=== PATIENT | male | born 1985 | race Hispanic/Latino ===

== ENCOUNTER 2023-07-30 16:21 | Emergency (ER) | payer SELFPAY ==
--- NOTE | 2023-07-30 17:49 | RAD REPORT ---
EXAM DESCRIPTION: US - Extremity Venous Uni Ltd - 07/30/2023 5:15 pm CLINICAL HISTORY: Pain, swelling COMPARISON: None. TECHNIQUE: Real-time sonographic evaluation of the right lower extremity deep venous system was perf ormed. FINDINGS: Normal compressibility, flow augmentation, phasic flow and spontaneous flow is identified in the right lower extremity deep venous system. No intraluminal filling defects seen. Subcutaneous edema in the region of bruising among the right hip, without discrete fluid collection or hematoma. IMPRESSION: No DVT in the right lower extremity.
--- NOTE | 2023-07-30 17:55 | ER ---
Nurse's Notes [facility] Name: Cain Ramirez Age: 37 yrs Sex: Male : 1985 Arrival Date: 07/30/2023 Time: 16:21 Bed 12 Private MD: Diagnosis: Contusion of right lower leg Presentation: 07/30 16:27 Chief complaint: Patient states: " 4 days ago we were wrestling outside and I fell on ph the ground on some pecans and hurt my leg. It's been getting bigger and I just want to make sure it's not a blood clot." Reports pain to R thigh area. Coronavirus screen: Vaccine status: Patient reports being unvaccinated. Ebola Screen: No symptoms or risks identified at this time. Initial Sepsis Screen: Does the patient meet any 2 criteria? No. Patient's initial sepsis screen is negative. Does the patient have a suspected source of infection? No. Patient's initial sepsis screen is negative. Risk Assessment: Do you want to hurt yourself or someone else? Patient reports no desire to harm self or others. Onset of symptoms was July 30, 2023. 16:27 Method Of Arrival: Ambulatory ph 16:27 Acuity: NII 4 ph Historical: - Allergies: 16:30 No Known Allergies; ph - Immunization history:: Adult Immunizations unknown. - Social history:: Smoking status: Patient denies any tobacco usage or history of. Screenin:32 [facility] ED Fall Risk Assessment (Adult) History of falling in the last 3 months, ld1 including since admission No falls in past 3 months (0 pts). Abuse screen: Denies threats or abuse. Denies injuries from another. Nutritional screening: No deficits noted. Tuberculosis screening: No symptoms or risk factors identified. Assessment: 16:32 General: Appears in no apparent distress. comfortable, Behavior is calm, cooperative, ld1 appropriate for age. Pain: Complains of pain in right leg Pain does not radiate. Pain currently is 7 out of 10 on a pain scale. Quality of pain is described as throbbing. Neuro: Level of Consciousness is awake, alert, obeys commands, Oriented to person, place, time, situation. Cardiovascular: Capillary refill < 3 seconds Patient's skin is warm and dry. Respiratory: Airway is patent Respiratory effort is even, unlabored. GI: Abdomen is flat, non-distended. : No signs and/or symptoms were reported regarding the genitourinary system. EENT: No signs and/or symptoms were reported regarding the EENT system. Derm: No signs and/or symptoms reported regarding the dermatologic system. Musculoskeletal: Reports pain in right leg. Vital Signs: 16:27 BP 151 / 101; Pulse 96; Resp 17; Temp 98.1; Pulse Ox 98% ; Weight 86.18 kg; Height 5 ph ft. 6 in. ; 16:27 Body Mass Index 30.67 (86.18 kg, 167.64 cm) ED Course: 16:25 Patient arrived in ED. 16:26 Joanie Isabel FNP is [facility] 16:26 Kwasi Collado MD is Attending Physician. [facility] 16:30 Triage completed. 16:30 Arm band placed on Patient placed in an exam room, on a stretcher. 16:31 Jaimee Dunn, RN is Primary Nurse. ld1 16:32 Patient has correct armband on for positive identification. Bed in low position. Call ld1 light in reach. Side rails up X2. Pulse ox on. NIBP on. Door closed. Noise minimized. 17:17 US Extremity Venous Unilateral Ltd In Process Unspecified. EDMS 17:58 No provider procedures requiring assistance completed. Patient did not have IV access ld1 during this emergency room visit. Administered Medications: No medications were administered Medication: 16:32 VIS not applicable for this client. ld1 Outcome: 17:54 Discharge ordered by . [facility] 17:58 Discharged to home ambulatory, ld1 17:58 Condition: stable 17:58 Discharge instructions given to patient, Instructed on discharge instructions, follow up and referral plans. Demonstrated understanding of instructions, follow-up care, 17:58 Patient left the ED. ld1 Signatures: Dispatcher [employer] EDLilo Tello RN RN Jaimee Dunn RN RN 1 Joanie Isabel FNP FNP [facility] Bety Burns
--- NOTE | 2023-07-30 17:55 | EDPHYS ---
Physician Documentation [facility] Name: Cain Ramirez Age: 37 yrs Sex: Male : 1985 Arrival Date: 07/30/2023 Time: 16:21 Bed 12 Private MD: ED Physician Kwasi Collado HPI: 07/30 16:30 This 37 yrs old Male presents to ER via Ambulatory with complaints of Leg jh7 Injury - right. 16:30 The patient presents with a contusion, pain, that is acute. The complaints affect the jh7 lateral aspect of right thigh. Context: The problem was sustained at a friend's home, resulted from a direct blow, Another person fell on the patient while wrestling. Onset: The symptoms/episode began/occurred 4 day(s) ago. Associated signs and symptoms: Pertinent negatives calf tenderness, fever, nausea, numbness, rash. Patient was wrestling while drunk 4 days ago and stated that another kika fell on his right thigh. He denies significant pain and is able to ambulate with no difficulty. He states he is concerned about a blood clot due to the large amount of bruising on his leg. No known medical problems.. Historical: - Allergies: 16:30 No Known Allergies; ph - Immunization history:: Adult Immunizations unknown. - Social history:: Smoking status: Patient denies any tobacco usage or history of. ROS: 16:30 Constitutional: Negative for fever, chills, and weight loss, Eyes: Negative for injury, jh7 pain, redness, and discharge, Neck: Negative for injury, pain, and swelling, Cardiovascular: Negative for chest pain, palpitations, and edema, Respiratory: Negative for shortness of breath, cough, wheezing, and pleuritic chest pain, Abdomen/GI: Negative for abdominal pain, nausea, vomiting, diarrhea, and constipation, Skin: Negative for injury, rash, and discoloration, Neuro: Negative for headache, weakness, numbness, tingling, and seizure, 16:30 MS/extremity: Positive for ecchymosis, of the lateral aspect of right thigh, 16:30 All other systems are negative, Exam: 16:30 Constitutional: This is a well developed, well nourished patient who is awake, alert, jh7 and in no acute distress. Head/Face: Normocephalic, atraumatic. Neck: Trachea midline, no thyromegaly or masses palpated, and no cervical lymphadenopathy. Supple, full range of motion without nuchal rigidity, or vertebral point tenderness. No Meningismus. Cardiovascular: Regular rate and rhythm with a normal S1 and S2. No gallops, murmurs, or rubs. Normal PMI, no JVD. No pulse deficits. Respiratory: Lungs have equal breath sounds bilaterally, clear to auscultation and percussion. No rales, rhonchi or wheezes noted. No increased work of breathing, no retractions or nasal flaring. Abdomen/GI: Soft, non-tender, with normal bowel sounds. No distension or tympany. No guarding or rebound. No evidence of tenderness throughout. Back: No spinal tenderness. No costovertebral tenderness. Full range of motion. MS/ Extremity: Pulses equal, no cyanosis. Neurovascular intact. Full, normal range of motion. Neuro: Awake and alert, GCS 15, oriented to person, place, time, and situation. Motor strength 5/5 in all extremities. Sensory grossly intact. Normal gait. 16:30 Musculoskeletal/extremity: Extremities: noted in the lateral aspect of right thigh: ecchymosis, ROM: intact in all extremities, Circulation is intact in all extremities. Pulses: are normal with no appreciated deficits, Perfusion: the extremity is normally perfused throughout, pink, warm, with brisk capillary refill, Sensation intact. Vital Signs: 16:27 BP 151 / 101; Pulse 96; Resp 17; Temp 98.1; Pulse Ox 98% ; Weight 86.18 kg; Height 5 ph ft. 6 in. ; 16:27 Body Mass Index 30.67 (86.18 kg, 167.64 cm) ph MDM: 16:26 Patient medically screened. [facility] 17:55 Differential diagnosis: contusion. Data reviewed: vital signs, nurses notes, radiologic [facility] studies, ultrasound. Counseling: I had a detailed discussion with the patient and/or guardian regarding the historical points, exam findings, and any diagnostic results supporting the discharge/admit diagnosis, radiology results, to return to the emergency department if symptoms worsen or persist or if there are any questions or concerns that arise at home. 07/30 16:32 Order name: Extremity Venous Unilateral Ltd; Complete Time: 17:52 [facility] Administered Medications: No medications were administered Disposition: 21:27 Co-signature as Attending Physician, Kwasi Collado MD I reviewed the patient's care rt provided by the Advanced Practice Provider and agree with the diagnosis and treatment plan. Disposition Summary: 07/30/23 17:54 Discharge Ordered Notes: Location: Home [facility] Problem: new [facility] Symptoms: are unchanged [facility] Condition: Stable [facility] Diagnosis - Contusion of right lower leg [facility] Followup: [facility] - With: Private Physician - When: 2 - 3 days - Reason: Recheck today's complaints Discharge Instructions: - Discharge Summary Sheet [facility] - Contusion [facility] Forms: - Medication Reconciliation Form [facility] - Thank You Letter [facility] - Patient Portal Instructions [facility] - Leadership Thank You Letter [facility] Signatures: Dispatcher [employer] Lilo Reyes RN RN Joanie Uribe, PRIMARY COUNSELOR PRIMARY COUNSELOR [facility] Kwasi Collado MD MD rt
[2023-07-30 18:02] VITALS: BP 151/101; TEMP 98.1; O2SAT 98
== END 2023-07-30 17:58 | disposition home or self-care (01) ==
LOC: ER 16:21
DX: S70.11XA Contusion of right thigh, initial encounter (principal)
CPT/HCPCS: 93971; 99283

== ENCOUNTER → 2023-10-28 | Emergency (ER) | payer SELFPAY ==
[~2023-10-28] MED LIST: NA CHLORIDE 0.9% 250 ML ONE
[2023-10-28 12:51] LABS: Specific Gravity < 1.005 (1.005-1.030); Urine Bacteria <20 /HPF (<20); Urine Bilirubin NEGATIVE (Negative); Urine Blood Negative (Negative); Urine Clarity Clear (Clear); Urine Color Colorless (Yellow); Urine Glucose NEGATIVE (Negative); Urine Protein TRACE (Negative); Urine RBC None Seen /HPF (None Seen); Urine Urobilinogen Normal (Normal); Urine pH 5.5 (5.0-7.0)
[2023-10-28 12:59] LABS: Protime INR 1.33
[2023-10-28 13:07] LABS: Albumin 3.8 g/dL (3.4-5.0); Bilirubin Total 0.8 mg/dL (0.2-1.0); Potassium 3.7 mEq/L (3.5-5.1); Protein, Total 9.4 g/dL (6.4-8.2)
[2023-10-28 13:22] LABS: Hematocrit 38.7 % (39.6-49.0); Lymphocytes % 17.1 % (15.3-44.8); MPV 8.5 fL (7.6-11.3); RBC Red Blood Cell Count 4.12 M/uL (4.33-5.43)
[2023-10-28 13:28] LABS: Platelets 15 thou/uL (152-406)
[2023-10-28 14:07] LABS: Blood Morphology Comment NOT SEEN (NOT SEEN); Platelet Estimate DECR; Platelets, Giant PRESENT; White Blood Cell Scan OK (OK)
--- NOTE | 2023-10-28 17:56 | ER ---
Nurse's Notes [facility] Name: Cain Ramirez Age: 37 yrs Sex: Male : 1985 Arrival Date: 10/28/2023 Time: 12:08 Bed 12 Private MD: Diagnosis: Thrombocytopenia, unspecified;Alcohol dependence Presentation: 10/28 12:18 Chief complaint: Patient states: Bruising on body and bleeding gums X 2-3 weeks. ld1 Coronavirus screen: At this time, the client does not indicate any symptoms associated with coronavirus-19. Ebola Screen: No symptoms or risks identified at this time. Initial Sepsis Screen: Does the patient meet any 2 criteria? No. Patient's initial sepsis screen is negative. Does the patient have a suspected source of infection? No. Patient's initial sepsis screen is negative. Risk Assessment: Do you want to hurt yourself or someone else?. Onset of symptoms was October 28, 2023 at 12:19. 12:18 Method Of Arrival: Ambulatory ld1 12:18 Acuity: NII 3 ld1 Triage Assessment: 12:19 General: Appears in no apparent distress. comfortable, Behavior is calm, cooperative, ld1 appropriate for age. Pain: Denies pain. EENT: No signs and/or symptoms were reported regarding the EENT system. Neuro: Level of Consciousness is awake, alert, obeys commands, Oriented to person, place, time, situation. Cardiovascular: Capillary refill < 3 seconds Patient's skin is warm and dry. Respiratory: Airway is patent Respiratory effort is even, unlabored. GI: Abdomen is round non-distended. : No signs and/or symptoms were reported regarding the genitourinary system. Derm: No signs and/or symptoms reported regarding the dermatologic system. Musculoskeletal: No signs and/or symptoms reported regarding the musculoskeletal system. Historical: - Allergies: 12:19 No Known Allergies; ld1 - Home Meds: 12:19 None [Active]; ld1 - PMHx: 12:19 None; ld1 - PSHx: 12:19 None; ld1 - Immunization history:: Adult Immunizations up to date. - Social history:: Smoking status: Patient denies any tobacco usage or history of. Patient uses alcohol. - Family history:: not pertinent. - Hospitalizations: : No recent hospitalization is reported. Screenin:44 [facility] ED Fall Risk Assessment (Adult) History of falling in the last 3 months, ld1 including since admission No falls in past 3 months (0 pts). Abuse screen: Denies threats or abuse. Denies injuries from another. Nutritional screening: No deficits noted. Tuberculosis screening: No symptoms or risk factors identified. Assessment: 12:20 Reassessment: See triage assessment. ld1 13:29 Reassessment: No changes from previously documented assessment. Patient and/or family ld1 updated on plan of care and expected duration. Pain level reassessed. 14:51 Reassessment: No changes from previously documented assessment. Patient and/or family ld1 updated on plan of care and expected duration. Pain level reassessed. 16:45 Reassessment: PT CONSENTED FOR TRANSFUSION. bp 17:45 Reassessment: INFUSION INITIATED. bp 18:15 Reassessment: PT DC HOME. bp Vital Signs: 12:18 BP 149 / 99; Pulse 97; Resp 18; Temp 97.6(TE); Pulse Ox 100% on R/A; Weight 89.36 kg; ld1 Height 5 ft. 6 in. ; Pain 0/10; 18:26 BP 131 / 90; Pulse 78; Resp 16; Pulse Ox 98% ; bp 12:18 Body Mass Index 31.80 (89.36 kg, 167.64 cm) ld1 12:18 Pain Scale: Adult ld1 ED Course: 12:11 Patient arrived in ED. mr 12:17 Ignacio Sofia MD is Attending Physician. rn 12:19 Triage completed. ld1 12:19 Arm band placed on. ld1 12:43 Inserted saline lock: 22 gauge in right forearm, using aseptic technique. Blood ld1 collected. 12:44 Patient has correct armband on for positive identification. ld1 12:47 Tony Mayer, GLEN is Primary Nurse. bp 18:28 No provider procedures requiring assistance completed. IV discontinued, intact, bp bleeding controlled, No redness/swelling at site. Pressure dressing applied. Administered Medications: 14:26 Drug: MethylPrednisoLONE IVP 125 mg IVP once Route: IVP; Site: right forearm; bp 18:28 Follow up: Response: No adverse reaction bp Outcome: 17:55 Discharge ordered by . rn 18:28 Discharged to home ambulatory, bp 18:28 Condition: stable 18:28 Discharge instructions given to patient, Instructed on discharge instructions, follow up and referral plans. medication usage, Demonstrated understanding of instructions, follow-up care, medications, Prescriptions given X 1, 18:29 Patient left the ED. bp Signatures: Carrol Gramajo Reg Reg mr Ignacio Sofia MD MD rn Peltier, Brian RN RN bp Jaimee Dunn RN RN ld1
--- NOTE | 2023-10-28 17:56 | EDPHYS ---
Physician Documentation [facility] Name: Cain Ramirez Age: 37 yrs Sex: Male : 1985 Arrival Date: 10/28/2023 Time: 12:08 Bed 12 Private MD: ED Physician Ignacio Sofia HPI: 10/28 14:13 This 37 yrs old Male presents to ER via Ambulatory with complaints of Bleeding rn Gums, Gums swelling. 14:13 The patient presents with bleeding. Onset: The symptoms/episode began/occurred today. rn Modifying factors: The symptoms are alleviated by nothing, the symptoms are aggravated by nothing. Severity of symptoms: At their worst the symptoms were mild, in the emergency department the symptoms are unchanged. The patient has not experienced similar symptoms in the past. Patient reports is daily drinker, came in today because noticed gums were bleeding. Also has noticed over the last few weeks easy bruising. No trauma. No head injury. Denies family history of blood dyscrasias or cancer.. Historical: - Allergies: 12:19 No Known Allergies; ld1 - Home Meds: 12:19 None [Active]; ld1 - PMHx: 12:19 None; ld1 - PSHx: 12:19 None; ld1 - Immunization history:: Adult Immunizations up to date. - Social history:: Smoking status: Patient denies any tobacco usage or history of. Patient uses alcohol. - Family history:: not pertinent. - Hospitalizations: : No recent hospitalization is reported. ROS: 14:13 Constitutional: Negative for fever, chills, and weight loss, ENT: Positive for gingival rn bleeding and intermittent nosebleeds Cardiovascular: Negative for chest pain, palpitations, and edema, Respiratory: Negative for shortness of breath, cough, wheezing, and pleuritic chest pain, Abdomen/GI: Negative for abdominal pain, nausea, vomiting, diarrhea, and constipation, Back: Negative for injury and pain, MS/Extremity: Negative for injury and deformity, Skin: Positive for bruising Neuro: Negative for headache, weakness, numbness, tingling, and seizure, Exam: 14:13 Constitutional: This is a well developed, well nourished patient who is awake, alert, rn and in no acute distress. Head/Face: Normocephalic, atraumatic. ENT: Mild bleeding along upper gingival line. No arterial bleeding. Poor dentition. No nosebleed Cardiovascular: Regular rate and rhythm. No pulse deficits. Respiratory: No increased work of breathing, no retractions or nasal flaring. Abdomen/GI: Soft, non-tender MS/ Extremity: Pulses equal, no cyanosis Neuro: Awake and alert, GCS 15 Vital Signs: 12:18 BP 149 / 99; Pulse 97; Resp 18; Temp 97.6(TE); Pulse Ox 100% on R/A; Weight 89.36 kg; ld1 Height 5 ft. 6 in. ; Pain 0/10; 18:26 BP 131 / 90; Pulse 78; Resp 16; Pulse Ox 98% ; bp 12:18 Body Mass Index 31.80 (89.36 kg, 167.64 cm) ld1 12:18 Pain Scale: Adult ld1 MDM: 12:17 Patient medically screened. rn 14:13 Differential diagnosis: dental caries, gingivitis, Alcoholic liver disease, alcohol rn induced thrombocytopenia. 17:36 Data reviewed: vital signs, nurses notes, lab test result(s), and as a result, I will spring intern patient. 17:52 Counseling: I had a detailed discussion with the patient and/or guardian regarding the rn historical points, exam findings, and any diagnostic results supporting the discharge/admit diagnosis, lab results, the need for outpatient follow up, to return to the emergency department if symptoms worsen or persist or if there are any questions or concerns that arise at home. Special discussion: I discussed with the patient/guardian in detail that at this point there is no indication for admission to the hospital. It is understood, however, that if the symptoms persist or worsen the patient needs to return immediately for re-evaluation. 17:52 ED course: Had long discussion with patient and sister regarding need to stop drinking rn and the repercussions that he is facing at this time. No indication for emergent admission. I consulted with hospitalist group and they said other than platelet transfusion can be managed outpatient. Patient interested in stopping drinking, will discharge with Librium. 10/28 14:05 Order name: Type And Screen rn 10/28 12:25 Order name: CBC with Diff; Complete Time: 14:42 rn 10/28 12:25 Order name: CMP; Complete Time: 13:49 rn 10/28 12:25 Order name: Lipase; Complete Time: 13:49 rn 10/28 12:25 Order name: Protime (+inr); Complete Time: 13:49 rn 10/28 12:25 Order name: Ptt, Activated; Complete Time: 13:49 rn 10/28 12:31 Order name: Urinalysis w/ reflexes; Complete Time: 13:49 rn 10/28 12:31 Order name: ETOH Level; Complete Time: 13:49 rn 10/28 13:30 Order name: CBC Smear Scan; Complete Time: 14:42 EDMS 10/28 16:02 Order name: ABO/RH no charge; Complete Time: 16:17 EDMS 10/28 16:47 Order name: Platelets, Leukored Pheresis EDAL 10/28 12:25 Order name: IV Saline Lock; Complete Time: 12:43 rn 10/28 12:25 Order name: Labs collected and sent; Complete Time: 12:43 rn 10/28 12:57 Order name: Labs - recollect needed: lavender top; Complete Time: 12:58 ds4 10/28 14:28 Order name: Labs - recollect needed; Complete Time: 14:51 ds4 Administered Medications: 14:26 Drug: MethylPrednisoLONE IVP 125 mg IVP once Route: IVP; Site: right forearm; bp 18:28 Follow up: Response: No adverse reaction bp Disposition Summary: 10/28/23 17:55 Discharge Ordered Notes: Location: Home rn Problem: new rn Symptoms: have improved rn Condition: Stable rn Diagnosis - Thrombocytopenia, unspecified rn - Alcohol dependence rn Followup: rn - With: Private Physician - When: As needed - Reason: Recheck today's complaints, Re-evaluation by your physician Discharge Instructions: - Discharge Summary Sheet rn - Thrombocytopenia rn - Platelet Transfusion rn Forms: - Medication Reconciliation Form rn - Thank You Letter rn - Antibiotic lead burner supervisor - Prescription Opioid Use rn - Patient Portal Instructions rn - Leadership Thank You Letter rn Prescriptions: - chlordiazepoxide HCl 25 mg laryngotracheal capsule - take 1 capsule ORAL route 3 times per day As needed as needed for alcohol rn withdrawal; 30 capsule; Refills: 0, Product Selection Permitted Signatures: Dispatcher [employer] EDMS Ignacio Sofia MD MD rn Swanson, Donovan ds4 Tony Mayer RN RN bp Jaimee Dunn RN RN ld1
[2023-10-28 18:47] VITALS: BP 131/90; TEMP 97.6; O2SAT 98
== END ==
LOC: ER 12:08
DX: D69.6 Thrombocytopenia, unspecified (principal); F10.20 Alcohol dependence, uncomplicated
CPT/HCPCS: 36415; 80053; 81001; 82077; 83690; 85025; 85610; 85730; 86850; 86900; 86901; J7050; P9073

== ENCOUNTER 2024-04-08 23:21 | Inpatient (IN) | payer OTHER ==
[2024-04-09 00:13] LABS: Absolute Basophils 0.1 K/uL (0-0.5); Absolute Eosinophils 0.1 K/uL (0-0.5); Absolute Lymphocytes (CBC) 0.7 K/uL (0.7-4.9); Absolute Monocytes 0.5 K/uL (0.1-1.3); Absolute Neutrophil 4.2 K/uL (1.8-8.0); Basophils % 1.2 % (0-1.3); Eosinophils % 2.7 % (0-4.4); Hematocrit 33.1 % (39.6-49.0); Hemoglobin 11.1 g/dL (13.6-17.9); Lymphocytes % 12.1 % (15.3-44.8); MCH 31.1 pg (27.0-35.0); MCHC 33.5 g/dL (32.0-36.0); MCV 92.7 fL (80-100); MPV 9.8 fL (7.6-11.3); Monocytes % 8.6 % (3.3-12.3); Neutrophils % 75.4 % (41.7-73.7); Nucleated Red Blood Cells % 0.1 % (0-0); Platelets 30 thou/uL (152-406); RBC Red Blood Cell Count 3.58 M/uL (4.33-5.43)
[2024-04-09] MEDS ORDERED: NA CHLORIDE 0.9% 1,000 ML ONE ×2 (00:13→01:44)
[2024-04-09 00:31] LABS: Albumin 3.7 g/dL (3.4-5.0); Albumin/Globulin Ratio 0.8 (1.1-1.8); Anion Gap 11.6 mEq/L (5.0-15.0); Bilirubin Direct 0.5 mg/dL (0-0.2); Bilirubin Total 1.5 mg/dL (0.2-1.0); Globulin 4.7 g/dL (2.3-3.5); Magnesium 1.5 mg/dL (1.6-2.4); Potassium 3.6 mEq/L (3.5-5.1); Protein, Total 8.4 g/dL (6.4-8.2); Troponin High Sensitivity 4.2 pg/mL (<58.9)
[2024-04-09] MEDS ORDERED: VITAMIN K (ADULT) 10 MG/ML ONE (00:45)
[2024-04-09] MEDS ORDERED: PANTOPRAZOLE 40 MG INJ ONE (00:45)
[2024-04-09 00:46] LABS: Specific Gravity 1.009 (1.005-1.030); Urine Bilirubin NEGATIVE (Negative); Urine Blood Negative (Negative); Urine Clarity Clear (Clear); Urine Color Light-Yellow (Yellow); Urine Glucose NEGATIVE (Negative); Urine Ketones NEGATIVE (Negative); Urine Microscopic Reflex YN NO UMIC; Urine Nitrite NEGATIVE (Negative); Urine Protein NEGATIVE (Negative); Urine Urobilinogen 1+ (Normal); Urine pH 7.5 (5.0-7.0)
[2024-04-09] MEDS ORDERED: TRANEXAMIC ACID 1,000 MG/10 ML VIAL IV ONE (00:46)
[2024-04-09] MEDS ORDERED: NA CHLORIDE 0.9% 100 ML ONE (00:46)
[2024-04-09] MEDS ORDERED: Magnesium Sulfate 2gm IVPB 2 G/50 ML BAG IV ONE (00:46)
[2024-04-09 00:55] LABS: PT Prothrombin Time 16.2 SECONDS (9.4-12.5); Protime INR 1.46
[2024-04-09] MEDS ORDERED: LORazepam 2 MG/ML VIAL ONE ×3 (01:06→04:54)
--- NOTE | 2024-04-09 01:30 | EDPHYS ---
Physician Documentation [facility] Name: Cain Ramirez Age: 38 yrs Sex: Male : 1985 Arrival Date: 04/08/2024 Time: 23:21 Bed 5 Private MD: ED Physician Dread Spencer HPI: 04/09 00:30 This 38 yrs old Male presents to ER via Ambulatory with complaints of General zoie Weakness, Bleeding Gums. Historical: - Allergies: 04/08 23:39 No Known Allergies; tl4 - PMHx: 23:39 Hypertensive disorder; Liver Issues; tl4 - Immunization history:: Adult Immunizations unknown. - Infectious Disease History:: Denies. - Social history:: Smoking status: Patient denies any tobacco usage or history of. Patient uses alcohol, on a daily basis. 12 pack/day. ROS: 04/09 00:38 Constitutional: Negative for fever, chills, and weight loss, Eyes: Negative for injury, zoie pain, redness, and discharge, Neck: Negative for injury, pain, and swelling, Cardiovascular: Negative for chest pain, palpitations, and edema, Respiratory: Negative for shortness of breath, cough, wheezing, and pleuritic chest pain, Abdomen/GI: Negative for abdominal pain, nausea, vomiting, diarrhea, and constipation, Back: Negative for injury and pain, : Negative for injury, bleeding, discharge, and swelling, MS/Extremity: Negative for injury and deformity, Skin: Negative for injury, rash, and discoloration, Neuro: Negative for headache, weakness, numbness, tingling, and seizure, ENT: Positive for dental pain, Gum pain Teeth pain gingival bleeding, Exam: 00:38 Constitutional: This is a well developed, well nourished patient who is awake, alert, zoie and in no acute distress. Head/Face: Normocephalic, atraumatic. Eyes: Pupils equal round and reactive to light, extra-ocular motions intact. Lids and lashes normal. Conjunctiva and sclera are non-icteric and not injected. Cornea within normal limits. Periorbital areas with no swelling, redness, or edema. Neck: Trachea midline, no thyromegaly or masses palpated, and no cervical lymphadenopathy. Supple, full range of motion without nuchal rigidity, or vertebral point tenderness. No Meningismus. Chest/axilla: Normal chest wall appearance and motion. Nontender with no deformity. No lesions are appreciated. Cardiovascular: Regular rate and rhythm with a normal S1 and S2. No gallops, murmurs, or rubs. Normal PMI, no JVD. No pulse deficits. Respiratory: Lungs have equal breath sounds bilaterally, clear to auscultation and percussion. No rales, rhonchi or wheezes noted. No increased work of breathing, no retractions or nasal flaring. Abdomen/GI: Soft, non-tender, with normal bowel sounds. No distension or tympany. No guarding or rebound. No evidence of tenderness throughout. Back: No spinal tenderness. No costovertebral tenderness. Full range of motion. Male : Normal genitalia with no discharge or lesions. MS/ Extremity: Pulses equal, no cyanosis. Neurovascular intact. Full, normal range of motion. Neuro: Awake and alert, GCS 15, oriented to person, place, time, and situation. Cranial nerves II-XII grossly intact. Motor strength 5/5 in all extremities. Sensory grossly intact. Cerebellar exam normal. Normal gait. Psych: Awake, alert, with orientation to person, place and time. Behavior, mood, and affect are within normal limits. 00:38 ENT: Mouth: Lips: normal, Oral mucosa: moist, Gums: bleeding, on the upper left second molar, upper left third molar and lower left third molar, 01:05 ECG was reviewed by the Attending Physician. [facility] 06:54 ECG was reviewed by the Attending Physician. [facility] Vital Signs: 04/08 23:37 BP 153 / 107; Pulse 84; Resp 20; Temp 99(O); Pulse Ox 100% on R/A; Weight 84.82 kg; tl4 Height 5 ft. 6 in. ; Pain 0/10; 04/09 01:01 BP 156 / 96; Pulse 89; Resp 18; Pulse Ox 100% ; cp4 02:00 BP 142 / 100; Pulse 117; Resp 18; Pulse Ox 96% ; cp4 03:00 BP 130 / 83; Pulse 104; Resp 18; Pulse Ox 100% on 2 lpm NC; cp4 04:00 BP 131 / 95; Pulse 113; Resp 18; Pulse Ox 100% on 2 lpm NC; cp4 04/08 23:37 Body Mass Index 30.18 (84.82 kg, 167.64 cm) tl4 04/08 23:37 Pain Scale: Adult tl4 MDM: 04/08 23:25 Patient medically screened. [facility] 04/09 00:42 Differential diagnosis: dental caries, gingivitis, gingivostomatitis. Data reviewed: [facility] vital signs, nurses notes, lab test result(s), EKG, radiologic studies, plain films. Consideration of Admission/Observation Escalation of care including admission/observation considered. I considered the following discharge prescriptions or medication management in the emergency department Medications were administered in the Emergency Department. See MAR. Independent interpretation of the following test(s) in the Emergency Department EKG: See my EKG interpretation above. Test considered but Not performed: Ultrasound no abd usg. Historians other than the Patient: Family Member: sister well informed. Care significantly affected by the following chronic conditions: Hypertension, Obesity, Liver Disease, cirrhosis. Counseling: I had a detailed discussion with the patient and/or guardian regarding the historical points, exam findings, and any diagnostic results supporting the discharge/admit diagnosis, the presence of at least one elevated blood pressure reading (>120/80) during this emergency department visit, lab results, radiology results. 04/08 23:26 Order name: Basic Metabolic Panel; Complete Time: 00:32 [facility] 04/08 23:26 Order name: CBC with Diff; Complete Time: 04:43 [facility] 04/08 23:26 Order name: LFT's; Complete Time: 00:32 [facility] 04/08 23:26 Order name: Magnesium; Complete Time: 00:32 [facility] 04/08 23:26 Order name: NT PRO-BNP; Complete Time: 00:32 [facility] 04/08 23:26 Order name: PT-INR; Complete Time: 01:01 [facility] 04/08 23:26 Order name: Troponin HS; Complete Time: 00:32 [facility] 04/08 23:26 Order name: Lipase; Complete Time: 00:32 [facility] 04/08 23:26 Order name: AMMONIA; Complete Time: 00:30 [facility] 04/08 23:26 Order name: Type And Screen [facility] 04/08 23:26 Order name: Urinalysis w/ reflexes; Complete Time: 01:01 [facility] 04/08 23:38 Order name: ETOH Level; Complete Time: 00:30 [facility] 04/09 00:16 Order name: CBC Smear Scan; Complete Time: 04:43 EDMS 04/09 04:10 Order name: Urinalysis w/ reflexes [facility] 04/09 04:10 Order name: CBC with Automated Diff [facility] 04/09 04:10 Order name: CBC with Automated Diff [facility] 04/09 04:10 Order name: Comprehensive Metabolic Panel [facility] 04/09 04:10 Order name: Comprehensive Metabolic Panel [facility] 04/09 04:10 Order name: Protime (+INR) [facility] 04/09 04:10 Order name: Protime (+INR) [facility] 04/09 04:10 Order name: PTT, Activated Partial Thromb [facility] 04/09 04:10 Order name: PTT, Activated Partial Thromb [facility] 04/08 23:26 Order name: XRAY Chest (1 view) [facility] 04/09 01:14 Order name: CT Head Brain wo Cont [facility] 04/08 23:26 Order name: EKG; Complete Time: 23:27 [facility] 04/08 23:26 Order name: Cardiac monitoring; Complete Time: 23:49 [facility] 04/08 23:26 Order name: EKG - Nurse/Tech; Complete Time: 00:05 [facility] 04/08 23:26 Order name: IV Saline Lock; Complete Time: 23:49 [facility] 04/08 23:26 Order name: Labs collected and sent; Complete Time: 23:49 [facility] 04/08 23:26 Order name: O2 Per Protocol; Complete Time: 23:49 [facility] 04/08 23:26 Order name: O2 Sat Monitoring; Complete Time: 23:49 [facility] 04/09 00:32 Order name: PO challenge: cold water, ice, swish; Complete Time: 00:58 [facility] 04/09 04:45 Order name: EKG - Nurse/Tech; Complete Time: 04:50 [facility] EC:05 Rate is 93 beats/min. Rhythm is regular. QRS [place] is Normal. [place] interval is normal. QRS zoie interval is normal. QT interval is normal. No Q waves. T waves are Normal. No ST changes noted. Clinical impression: NSR w/ Non-specific ST/T Changes and No evidence of ischemia. Interpreted by me. Reviewed by me. 06:54 Rate is 116 beats/min. Rhythm is regular. QRS [place] is Normal. [place] interval is normal. zoie QRS interval is normal. QT interval is normal. No Q waves. T waves are Normal. No ST changes noted. Clinical impression: Sinus tachycardia. Interpreted by me. Reviewed by me. Administered Medications: 01:21 Discontinued: ns 0.9% 1000 ml IV at 125 ml/hr continuous zoie 00:19 Drug: NS 0.9% IV 1000 ml IV at 125 ml/hr continuous Route: IV; Rate: 125 ml/hr; Site: cp4 right antecubital; 00:57 Drug: tranexamic acid 1000 mg IV at per protocol once; administer at a rate not to cp4 exceed 100 mg per min Route: IV; Rate: per protocol; Site: right antecubital; 01:15 Follow up: Response: No adverse reaction; IV Status: Completed infusion cp4 00:58 Drug: Phytonadione IM 10 mg IM once Route: IM; Site: right deltoid; cp4 03:23 Follow up: Response: No adverse reaction cp4 00:58 Drug: Pantoprazole IVP 40 mg IVP once Route: IVP; Site: right antecubital; cp4 03:22 Follow up: Response: No adverse reaction cp4 01:07 Drug: Ativan IVP 2 mg IVP once Route: IVP; Site: right antecubital; ss 03:22 Follow up: Response: No adverse reaction cp4 01:16 Drug: Magnesium Sulfate IVPB 2 grams IVPB once over 2 hrs Route: IVPB; Infused Over: 2 cp4 hrs; Site: right antecubital; 01:31 Follow up: Response: No adverse reaction; IV Status: Completed infusion cp4 01:56 Drug: Thiamine IV 100 mg IV at bolus once Route: IV; Rate: bolus; Site: right cp4 antecubital; 01:57 Follow up: IV Status: Completed infusion cp4 01:57 Drug: Banana Bag - (Multivitamin IV 1 amp, NS 0.9% IV 1000 ml, Thiamine IV 100 mg, cp4 foLIC Acid IVPB 1 mg) IV at 150 ml/hr once Route: IV; Rate: 150 ml/hr; Site: right antecubital; 04:57 Follow up: IV Status: Infusion continued upon admission ss 04:38 Drug: Ativan IVP 2 mg IVP once Route: IVP; Site: right antecubital; cp4 04:57 Follow up: Response: No adverse reaction; No change in condition ss 04:45 Drug: NS 0.9% IV 1000 ml IV at 1 bolus Per protocol; 1000 mL bolus Route: IV; Rate: 1 cp4 bolus; Site: right antecubital; 05:15 Follow up: IV Status: Infusion continued upon admission cp4 04:57 Drug: Ativan IVP 2 mg IVP once Route: IVP; Site: right antecubital; 05:15 Follow up: Response: No adverse reaction cp4 Disposition Summary: 04/09/24 01:29 Hospitalization Ordered Notes: Hospitalization Status: Inpatient Admission zoie Provider: Robert Chen cha Condition: Fair zoie Problem: new zoie Symptoms: have improved zoie Bed/Room Type: Standard zoie Location: Intensive Care Unit(04/09/24 04:36) zoie Room Assignment: 6-(04/09/24 04:37) formerly [facility] Diagnosis - Alcohol dependence with withdrawal, unspecified zoie - Dental caries, unspecified - gingival bleeding zoie - Other secondary thrombocytopenia - alcoholic liver disease zoie - Other seizures zoie - Hypomagnesemia zoie - Essential (primary) hypertension zoie Forms: - Medication Reconciliation Form zoie - SBAR form zoie - Leadership Thank You Letter zoie Critical care time excluding procedures: 06:54 Critical care time: Bedside Care: 35 minutes, Consultation: 15 minutes, Family zoie Intervention: 15 minutes. Total time: 65 minutes Signatures: Dispatcher [employer] EDDread Roberson MD MD cha Blanchard, Shelby, RN RN Mary Carmen Gomez cp4 Maria T Alvarado formerly [facility] Raoul Abebe RN RN tl4 Sultan Del [facility] Corrections: (The following items were deleted from the chart) 04/08 23:27 23:27 BASIC METABOLIC PANEL+C.LAB.BRZ ordered. EDMS EDMS 23:27 23:27 CBC+H.LAB.BRZ ordered. EDMS EDMS 23:27 23:27 HEPATIC FUNCTION+C.LAB.BRZ ordered. EDMS EDMS 23:27 23:27 MAGNESIUM+C.LAB.BRZ ordered. EDMS EDMS 23:27 23:27 PROBNP+C.LAB.BRZ ordered. EDMS EDMS 23:27 23:27 PROTIME (+INR)+COAG.LAB.BRZ ordered. EDMS EDMS 23:27 23:27 Troponin High Sensitivity+C.LAB.BRZ ordered. EDMS EDMS 23:27 23:27 LIPASE+C.LAB.BRZ ordered. EDMS EDMS 23: 23:27 AMMONIA+C.LAB.BRZ ordered. EDMS EDMS 23: 23:27 TYPE AND SCREEN+BB.LAB.BRZ ordered. EDMS EDMS 23:38 23:38 ETHANOL+C.LAB.BRZ ordered. EDMS EDMS 04/09 01:15 01:15 Head Brain Wo Cont+CT.RAD.BRZ ordered. EDMS EDMS 04:33 01:29 [place] [id number] 04:36 01:29 Telemetry/MedSurg (Inpatient) [facility] 04:36 04:33 [facility] 04:37 04:36 [facility] kmf
--- NOTE | 2024-04-09 01:30 | ER ---
Nurse's Notes [facility] Name: Cain Ramirez Age: 38 yrs Sex: Male : 1985 Arrival Date: 04/08/2024 Time: 23:21 Bed 5 Private MD: Diagnosis: Alcohol dependence with withdrawal, unspecified;Dental caries, unspecified-gingival bleeding;Other secondary thrombocytopenia-alcoholic liver disease;Other seizures;Hypomagnesemia;Essential (primary) hypertension Presentation: 04/08 23:37 Chief complaint: Patient states: Pt c/o bleeding gums since 1930 tonight. Pt states he tl4 had similar episode recently associated with ETOH abuse. Pt states he has soaked several paper towels. Pt states last ETOH was yesterday. Pt has been drinking 12 pack/day. Coronavirus screen: At this time, the client does not indicate any symptoms associated with coronavirus-19. Ebola Screen: No symptoms or risks identified at this time. Initial Sepsis Screen: Does the patient meet any 2 criteria? No. Patient's initial sepsis screen is negative. Does the patient have a suspected source of infection? No. Patient's initial sepsis screen is negative. Risk Assessment: Do you want to hurt yourself or someone else? Patient reports no desire to harm self or others. Onset of symptoms was April 08, 2024 at 19:30. 23:37 Method Of Arrival: Ambulatory tl4 23:37 Acuity: NII 3 tl4 Triage Assessment: 23:40 General: Appears distressed, Behavior is cooperative. Pain: Denies pain. EENT: bleeding tl4 from gums. Neuro: Level of Consciousness is awake, alert, obeys commands, Oriented to person, place, time, situation. Cardiovascular: Capillary refill < 3 seconds Patient's skin is warm and dry. Respiratory: Airway is patent Respiratory effort is even, unlabored, Respiratory pattern is regular, symmetrical. GI: No signs and/or symptoms were reported involving the gastrointestinal system. : No signs and/or symptoms were reported regarding the genitourinary system. Derm: No signs and/or symptoms reported regarding the dermatologic system. Musculoskeletal: No signs and/or symptoms reported regarding the musculoskeletal system. Historical: - Allergies: 23:39 No Known Allergies; tl4 - PMHx: 23:39 Hypertensive disorder; Liver Issues; tl4 - Immunization history:: Adult Immunizations unknown. - Infectious Disease History:: Denies. - Social history:: Smoking status: Patient denies any tobacco usage or history of. Patient uses alcohol, on a daily basis. 12 pack/day. Screenin:42 Clinical [place] Withdrawal Assessment for Alcohol, revised (CIWA-Ar): tl4 Nausea/Vomitin - No nausea or vomiting Headache: 0 - Not present Paroxysmal Sweats: 0 - No sweats visible Anxiety: 4 - Moderately anxious, guarded Agitation: 0 - Normal actiivty Tremor: 4 - Moderate when client's hands extended Auditory Disturbances: 0 - Not present Visual Disturbances: 0 - Not present Tactile Disturbances: 0 - None Orientation and Clouding of Sensorium: 0 - Oriented and can do serial additions Total Score: < 10 Very mild withdrawal. 04/09 00:03 [facility] ED Fall Risk Assessment (Adult) History of falling in the last 3 months, cp4 including since admission No falls in past 3 months (0 pts) Confusion or Disorientation No (0 pts) Intoxicated or Sedated No (0 pts) Impaired Gait No (0 pts) Mobility Assist Device Used No (0 pt) Altered Elimination No (0 pt) Score/Fall Risk Level 0 - 2 = Low Risk Oriented to surroundings, Maintained a safe environment, Assessed \T\ reinforced patient's understanding of fall precautions, Hourly rounding (assess needs \T\ fall precautionary measures) done. Abuse screen: Denies threats or abuse. Nutritional screening: No deficits noted. Tuberculosis screening: No symptoms or risk factors identified. Assessment: 00:01 General: Appears uncomfortable, Behavior is calm, cooperative, appropriate for age. cp4 Pain: Denies pain. Neuro: Level of Consciousness is awake, alert, obeys commands, Oriented to person, place, time, situation. Cardiovascular: No deficits noted. Respiratory: No deficits noted. GI: No deficits noted. : No deficits noted. EENT: Reports bleeding gums. Derm: No deficits noted. Musculoskeletal: No deficits noted. 01:16 Reassessment: Patient started having seizures. Provider notified and in room with cp4 patient. 02:00 Neuro: Level of Consciousness is awake, alert, obeys commands, Oriented to person, cp4 place, time, situation. 02:00 Reassessment: Patient and/or family updated on plan of care and expected duration. Pain cp4 level reassessed. Patient is alert, oriented x 3, equal unlabored respirations, skin warm/dry/pink. 03:00 Reassessment: No changes from previously documented assessment. Patient and/or family cp4 updated on plan of care and expected duration. Pain level reassessed. Patient is alert, oriented x 3, equal unlabored respirations, skin warm/dry/pink. Vital Signs: 04/08 23:37 BP 153 / 107; Pulse 84; Resp 20; Temp 99(O); Pulse Ox 100% on R/A; Weight 84.82 kg; tl4 Height 5 ft. 6 in. ; Pain 0/10; 04/09 01:01 BP 156 / 96; Pulse 89; Resp 18; Pulse Ox 100% ; cp4 02:00 BP 142 / 100; Pulse 117; Resp 18; Pulse Ox 96% ; cp4 03:00 BP 130 / 83; Pulse 104; Resp 18; Pulse Ox 100% on 2 lpm NC; cp4 04:00 BP 131 / 95; Pulse 113; Resp 18; Pulse Ox 100% on 2 lpm NC; cp4 04/08 23:37 Body Mass Index 30.18 (84.82 kg, 167.64 cm) tl4 04/08 23:37 Pain Scale: Adult tl4 ED Course: 04/08 23:22 Patient arrived in ED. am2 23:25 Dread Spencer MD is Attending Physician. [facility] 23:39 Triage completed. tl4 23:41 Arm band placed on right wrist. tl4 23:41 Client placed on continuous cardiac and pulse oximetry monitoring. NIBP monitoring tl4 applied. 23:56 Inserted saline lock: 20 gauge in right antecubital area, using aseptic technique. af3 Blood collected. Flushed with 10 mL NS. 23:56 Type And Screen Sent. af3 23:56 AMMONIA Sent. af3 23:56 Lipase Sent. af3 23:56 Basic Metabolic Panel Sent. af3 23:56 CBC with Diff Sent. af3 23:57 LFT's Sent. af3 23:57 Magnesium Sent. af3 23:57 NT PRO-BNP Sent. af3 23:57 PT-INR Sent. af3 23:57 Troponin HS Sent. af3 04/09 00:00 Mary Carmen Elias is Primary Nurse. cp4 00:03 Bed in low position. Call light in reach. Side rails up X 1. cp4 00:06 XRAY Chest (1 view) In Process Unspecified. EDMS 00:18 Urinalysis w/ reflexes Sent. cp4 00:18 No provider procedures requiring assistance completed. Urine collected: clean catch cp4 specimen, gavi colored. 01:25 Robert Chen MD is Hospitalizing Provider. zoie 02:06 CT Head Brain wo Cont In Process Unspecified. EDMS 06:53 Primary Nurse role handed off by Mary Carmen Elias Administered Medications: 01:21 Discontinued: ns 0.9% 1000 ml IV at 125 ml/hr continuous zoie 00:19 Drug: NS 0.9% IV 1000 ml IV at 125 ml/hr continuous Route: IV; Rate: 125 ml/hr; Site: cp4 right antecubital; 00:57 Drug: tranexamic acid 1000 mg IV at per protocol once; administer at a rate not to cp4 exceed 100 mg per min Route: IV; Rate: per protocol; Site: right antecubital; 01:15 Follow up: Response: No adverse reaction; IV Status: Completed infusion cp4 00:58 Drug: Phytonadione IM 10 mg IM once Route: IM; Site: right deltoid; cp4 03:23 Follow up: Response: No adverse reaction cp4 00:58 Drug: Pantoprazole IVP 40 mg IVP once Route: IVP; Site: right antecubital; cp4 03:22 Follow up: Response: No adverse reaction cp4 01:07 Drug: Ativan IVP 2 mg IVP once Route: IVP; Site: right antecubital; 03:22 Follow up: Response: No adverse reaction cp4 01:16 Drug: Magnesium Sulfate IVPB 2 grams IVPB once over 2 hrs Route: IVPB; Infused Over: 2 cp4 hrs; Site: right antecubital; 01:31 Follow up: Response: No adverse reaction; IV Status: Completed infusion cp4 01:56 Drug: Thiamine IV 100 mg IV at bolus once Route: IV; Rate: bolus; Site: right cp4 antecubital; 01:57 Follow up: IV Status: Completed infusion cp4 01:57 Drug: Banana Bag - (Multivitamin IV 1 amp, NS 0.9% IV 1000 ml, Thiamine IV 100 mg, cp4 foLIC Acid IVPB 1 mg) IV at 150 ml/hr once Route: IV; Rate: 150 ml/hr; Site: right antecubital; 04:57 Follow up: IV Status: Infusion continued upon admission ss 04:38 Drug: Ativan IVP 2 mg IVP once Route: IVP; Site: right antecubital; cp4 04:57 Follow up: Response: No adverse reaction; No change in condition ss 04:45 Drug: NS 0.9% IV 1000 ml IV at 1 bolus Per protocol; 1000 mL bolus Route: IV; Rate: 1 cp4 bolus; Site: right antecubital; 05:15 Follow up: IV Status: Infusion continued upon admission cp4 04:57 Drug: Ativan IVP 2 mg IVP once Route: IVP; Site: right antecubital; ss 05:15 Follow up: Response: No adverse reaction cp4 Medication: 00:03 VIS not applicable for this client. cp4 Outcome: 01:29 Decision to Hospitalize by Provider. [facility] 05:16 Patient left the ED. cp4 Signatures: Dispatcher [employer] EDSD Dread Spencer MD MD cha Blanchard, Shelby, RN RN Maral [place] cp4 Raoul Abebe RN RN [email or web address] Sherri [email or web address] Corrections: (The following items were deleted from the chart) 06:56 06:56 Patient left the ED. [facility]
[2024-04-09] MEDS ORDERED: THIAMINE 200 MG/2 ML INJ ONE (01:42)
[2024-04-09] MEDS ORDERED: MULTIVITAMINS 10 ML VIAL (INJ) IV ONE (01:43)
[2024-04-09] MEDS ORDERED: FOLIC ACID 5 MG/ML VIAL ONE (01:44)
[2024-04-09 03:03] LABS: Blood Morphology Comment NOT SEEN (NOT SEEN); Platelet Estimate DECR; White Blood Cell Scan OK (OK)
[2024-04-09] MEDS ORDERED: ONDANSETRON 4 MG/2 ML VIAL IV PRN (04:04)
[2024-04-09] MEDS ORDERED: ACETAMINOPHEN 325 MG TABLET PO PRN (04:04)
--- NOTE | 2024-04-09 04:12 | P.HP ---
Certification for Inpatient Patient admitted to: Inpatient With expected LOS: >2 Midnights Practitioner: I am a practitioner with admitting privileges, knowledge of patient current condition, hospital course, and medical plan of care. Services: Services provided to patient in accordance with Admission requirements found in Title 42 Section 412.3 of the Code of Federal Regulations Patient History Date of Service: 04/09/24 Reason for admission: Gum Bleeding, anxiety History of Present Illness: 38 yo Male with no significant past medical history other than alcoholism taking multiple vitamins stated that he drinks 6 pack a day. Came to ER with generalized weakness and palpitation and anxious and bleeding from the gums which started in early in the day and was brought to ER. Denies any chest pain. No fever or chills. Has some nausea but no vomiting. No sick contacts. Patient is a poor historian hence most of the history is obtained from the chart review and also talking with the ER physician . Patient was assessed in the ER and was found to have gingival bleeding with a low platelet count and delirium and was admitted to the ICU . Allergies No Known Allergies Allergy (Unverified 04/09/24 03:54) Home medications list reviewed: Yes Home Medications: NK [No Home Meds] 04/09/24 - Past Medical/Surgical History Past Medical History: Reviewed- Non-Contributory Past Surgical History: Reviewed- Non-Contributory - Social History Smoking Status: Never smoker Alcohol use: Yes Review of Systems 10-point ROS is otherwise unremarkable Physical Examination - Vital Signs Temperature: 97.2 F Blood Pressure: 138/78 Pulse: 118 Respirations: 18 Pulse Ox (%): 94 - Physical Exam General: Alert, Mild distress, Delirious HEENT: Atraumatic, Normocephalic, Other (Gingival bleeding +) Neck: Supple Respiratory: Clear to auscultation bilaterally Cardiovascular: Other (Tachycardia , Sinus tachy in Monitor ) Gastrointestinal: Soft and benign, No tenderness, Distended, Ascites Musculoskeletal: No clubbing Integumentary: No rashes, No breakdown, No tenderness/swelling Neurological: Other (Alert, Anxious , tremors +) Lymphatics: No axilla or inguinal lymphadenopathy - Studies Laboratory Data (last 24 hrs) 04/08/24 04/08/24 04/08/24 23:46 23:46 23:46 WBC 5.50 Hgb 11.1 L Hct 33.1 L Plt Count 30 L PT 16.2 H INR 1.46 Sodium 134 L Potassium 3.6 BUN 7 Creatinine 0.56 L Glucose 121 H Magnesium 1.5 L Total Bilirubin 1.5 H AST 124 H ALT 72 H Alkaline Phosphatase 133 H Lipase 186 H Assessment and Plan - Problems (Diagnosis) (1) Alcohol withdrawal delirium, acute, hyperactive Current Visit: Yes Status: Acute Plan: Acute alcohol withdrawal Admit to ICU [place] protocol Ativan as needed Monitor neuro vital signs closely Monitor closely for seizures Seizure precautions Banana bag Gingival bleeding Platelet count is low Will transfuse 1 unit platelet if continues to bleed H&H every 6 hours Alcohol abuse INR monitored Elevated LFTs noted Advise cessation GI/DVT prophylaxis Advanced directive full code Total critical care time used was 48 minutes Discharge Plan: Home Plan to discharge in: Greater than 2 days - Advance Directives Does patient have a Living Will: No Does patient have a Durable POA for Healthcare: No - Code Status/Comfort Care Code Status: Full Code Time Spent Managing Pts Care (In Minutes): 48
[2024-04-09] MEDS ORDERED: FLUMAZENIL 0.1 MG/ML (5 mL VIAL) IV PRN (05:20)
[2024-04-09] MEDS: NA CHLORIDE 0.9% 1,000 ML IV SCH (05:24)
[2024-04-09] MEDS: LORazepam 2 MG/ML VIAL IV SCH (06:02)
[2024-04-09] MEDS: LORazepam 2 MG/ML VIAL IV PRN ×2 (06:45→14:49)
[2024-04-09] MEDS: FOLIC ACID 1 MG, MULTIVITAMINS INJ 10 ML, THIAMINE HCL 100 MG in NA CHLORIDE 0.9% 1,000 ML IV SCH (08:39)
[2024-04-09] MEDS: NA CHLORIDE 0.9% 250 ML ONE (09:15)
[2024-04-09 11:18] LABS: Absolute Eosinophils 0.2 K/uL (0-0.5); Absolute Lymphocytes (CBC) 0.7 K/uL (0.7-4.9); Absolute Monocytes 0.5 K/uL (0.1-1.3); Absolute Neutrophil 4.2 K/uL (1.8-8.0); Basophils % 0.9 % (0-1.3); Hematocrit 32.7 % (39.6-49.0); Lymphocytes % 13.2 % (15.3-44.8); MCH 31.3 pg (27.0-35.0); MCHC 33.7 g/dL (32.0-36.0); MPV 8.2 fL (7.6-11.3); Monocytes % 8.6 % (3.3-12.3); Neutrophils % 74.3 % (41.7-73.7); Nucleated Red Blood Cells % 0.1 % (0-0); Platelets 60 thou/uL (152-406); RBC Red Blood Cell Count 3.51 M/uL (4.33-5.43); Red Cell Distribution Width 16.2 % (12.1-15.2)
[2024-04-09 11:23] LABS: Slides for Pathologist Review DONE
[2024-04-09 11:28] LABS: Percent Reticulocyte Count 1.42 % (0.4-2.05); RBC Red Blood Cell Count 3.51 M/uL (4.33-5.43)
[2024-04-09] MEDS: chlordiazePOXIDE HCl 25 MG CAP PO SCH (11:44)
[2024-04-09 12:29] LABS: Differential Total Cells Count 100; Eosinophils 4 % (0-3); Lymphocytes 14 % (15-42); Monocytes 3 % (0-10); Platelet Estimate DECR; Segmented Neutrophils 78 % (40-80)
[2024-04-09 12:30] LABS: Blood Morphology Comment NOT SEEN (NOT SEEN)
[2024-04-09] MEDS: DEXMEDETOMIDINE HCL 1,000 MCG in NA CHLORIDE 0.9% 490 ML IV SCH (13:52)
[2024-04-09] MEDS ORDERED: DEXMEDETOMIDINE HCL 200 MCG in NA CHLORIDE 0.9% 98 ML IV SCH (14:00)
[2024-04-09] MEDS: HYDROMORPHONE HCL 0.5 MG/0.5 ML INJ IV ONE (14:42)
[2024-04-10 05:09] LABS: Absolute Basophils 0.2 K/uL (0-0.5); Absolute Eosinophils 0.1 K/uL (0-0.5); Absolute Lymphocytes (CBC) 0.3 K/uL (0.7-4.9); Absolute Monocytes 0.4 K/uL (0.1-1.3); Absolute Neutrophil 5.5 K/uL (1.8-8.0); Basophils % 2.4 % (0-1.3); Hematocrit 30.7 % (39.6-49.0); Hemoglobin 10.3 g/dL (13.6-17.9); Lymphocytes % 4.2 % (15.3-44.8); MCH 31.1 pg (27.0-35.0); MCHC 33.4 g/dL (32.0-36.0); MCV 93.1 fL (80-100); MPV 8.8 fL (7.6-11.3); Monocytes % 5.8 % (3.3-12.3); Platelets 50 thou/uL (152-406); Red Cell Distribution Width 15.9 % (12.1-15.2)
[2024-04-10 05:15] LABS: Neutrophils % 86.6 % (41.7-73.7)
[2024-04-10 05:16] LABS: PT Prothrombin Time 15.3 SECONDS (9.4-12.5); PTT, Activated Partial Thromb 31.2 SECONDS (24.3-36.9); Protime INR 1.38
[2024-04-10 05:31] LABS: Albumin 3.3 g/dL (3.4-5.0); Albumin/Globulin Ratio 0.8 (1.1-1.8); Anion Gap 10.4 mEq/L (5.0-15.0); Bilirubin Total 1.6 mg/dL (0.2-1.0); Globulin 4.4 g/dL (2.3-3.5); Magnesium 1.8 mg/dL (1.6-2.4); Phosphorus 2.9 mg/dL (2.5-4.9); Potassium 3.4 mEq/L (3.5-5.1); Protein, Total 7.7 g/dL (6.4-8.2)
[2024-04-10] MEDS: KCL 20 MEQ/100 mL IVPB 20 MEQ/100 ML BAG IV SCH (06:27)
--- NOTE | 2024-04-10 10:52 | P.PN ---
Date of Service: 04/10/24 Subjective Patient still confused, and was a little more combative this morning. But overall he is doing better now. Physical Examination - Vital Signs reviewed - Physical Exam General: Alert, Mild distress, Delirious HEENT: Atraumatic, Normocephalic, Other (Gingival bleeding +) Respiratory: Clear to auscultation bilaterally Cardiovascular: Other (Tachycardia , Sinus tachy in Monitor ) Gastrointestinal: Soft and benign, No tenderness, Distended, Ascites Musculoskeletal: No clubbing Integumentary: No rashes, No breakdown, No tenderness/swelling Neurological: Other (Alert, Anxious , tremors +) Assessment and Plan - Problems (Diagnosis) (1) Alcohol withdrawal delirium, acute, hyperactive Current Visit: Yes Status: Acute Plan: (2) Thrombocytopenia Current Visit: Yes Status: Acute Plan: - Plan 1. Continue with Precedex drip 2. Librium every 6-8 hours scheduled 3. Monitor platelet count. Transfuse if less than 50,000. Continue monitoring H&H 4. Patient with no schistocytes on blood smears. 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 Will need further workup per hematology 5. Antiepileptics 6. GI DVT prophylaxis Total critical care time used was 35 minutes Discharge Plan: Home Plan to discharge in: Greater than 2 days - Advance Directives Does patient have a Living Will: No Does patient have a Durable POA for Healthcare: No - Code Status/Comfort Care Code Status: Full Code Time Spent Managing Pts Care (In Minutes): 35
--- NOTE | 2024-04-10 14:07 | RAD REPORT ---
EXAM DESCRIPTION: US - Abdomen Exam Limited - 04/10/2024 11:45 am CLINICAL HISTORY: cirrhosis/hepatic vein thrombosis COMPARISON: Head Brain Wo Cont dated 04/09/2024 TECHNIQUE: Sonographic grayscale and color flow images of the right upper abdominal quadrant were o btained. FINDINGS: The gallbladder demonstrates no gallstones. Trace pericholecystic fluid. No gallbladder wa ll thickening. The common bile duct is normal measuring 4 mm. The liver demonstrates diffusely increased echogenicity suggesting steatosis. No findings of intrahep atic biliary dilatation. Main portal vein is patent with hepatopetal flow. Spleen is normal in size measuring 11.6 cm in length. 1.8 cm splenule is incidentally noted near the hilum. IMPRESSION: Diffuse hepatic steatosis. Main portal vein is patent. Nonspecific trace pericholecystic fluid, without other findings to suggest acute cholecystitis.
[2024-04-11 05:44] VITALS: BMI 27.4
[2024-04-11 05:58] LABS: Absolute Eosinophils 0.3 K/uL (0-0.5); Absolute Lymphocytes (CBC) 1.2 K/uL (0.7-4.9); Absolute Monocytes 0.8 K/uL (0.1-1.3); Absolute Neutrophil 5.3 K/uL (1.8-8.0); Basophils % 0.4 % (0-1.3); Eosinophils % 3.6 % (0-4.4); Hematocrit 30.7 % (39.6-49.0); Hemoglobin 10.1 g/dL (13.6-17.9); Lymphocytes % 15.2 % (15.3-44.8); MCH 31.1 pg (27.0-35.0); MCHC 32.9 g/dL (32.0-36.0); MCV 94.4 fL (80-100); MPV 10.6 fL (7.6-11.3); Monocytes % 10.5 % (3.3-12.3); Neutrophils % 70.3 % (41.7-73.7); Percent Reticulocyte Count 1.91 % (0.4-2.05); Platelets 59 thou/uL (152-406); RBC Red Blood Cell Count 3.25 M/uL (4.33-5.43)
[2024-04-11] MEDS ORDERED: LORazepam 2 MG/ML VIAL IV SCH (06:00)
[2024-04-11 06:20] LABS: PT Prothrombin Time 15.1 SECONDS (9.4-12.5); PTT, Activated Partial Thromb 33.8 SECONDS (24.3-36.9); Protime INR 1.36
[2024-04-11 06:57] LABS: Potassium 3.6 mEq/L (3.5-5.1)
[2024-04-11 06:58] LABS: Albumin 3.1 g/dL (3.4-5.0); Albumin/Globulin Ratio 0.7 (1.1-1.8); Anion Gap 9.6 mEq/L (5.0-15.0); Bilirubin Total 1.1 mg/dL (0.2-1.0); Globulin 4.4 g/dL (2.3-3.5); Magnesium 1.9 mg/dL (1.6-2.4); Protein, Total 7.5 g/dL (6.4-8.2)
[2024-04-11] MEDS ORDERED: DEXMEDETOMIDINE HCL 200 MCG in NA CHLORIDE 0.9% 98 ML IV SCH (09:00)
[2024-04-11 09:21] VITALS: O2SAT 98
[2024-04-11] MEDS: POTASSIUM CL SA 10 MEQ TAB PO ONE (09:23)
--- NOTE | 2024-04-11 11:52 | RAD REPORT ---
EXAM DESCRIPTION: CT - Head Brain Wo Cont - 04/09/2024 7:37 am CLINICAL HISTORY: The patient is 38 years old and is Male; Seizure. TECHNIQUE: Axial computed tomography images of the head/brain without intravenous contrast. Sagitt al and coronal reformatted images were created and reviewed. This CT exam was performed using one o r more of the following dose reduction techniques: automated exposure control, adjustment of the mA and/or kV according to patient size, and/or use of iterative reconstruction technique. COMPARISON: None. FINDINGS: BRAIN: No extra-axial fluid collection. No intracranial hemorrhage. No transtentorial he rniation. No focal scahefer-white matter differentiation abnormality. MIDLINE SHIFT: None. VENTRICLES: Unremarkable No ventriculomegaly. BONES/JOINTS: No fracture of the calvarium or visualized facial bones. SOFT TISSUES: Unremarkable SINUSES: No masses, bony erosion or evidence of acute sinusitis. MASTOID AIR CELLS: Unremarkable as visualized. No mastoid effusion. IMPRESSION: No acute intracranial abnormality. Electronically signed by: Albert Land MD 04/09/2024 03:03 AM CDT Due to temporary technical issues with the PACS/Fluency reporting system, reports are being signed by the in house radiologist without review as a courtesy to ensure prompt reporting. The interpreting r adiologist is fully responsible for the content of the report.
--- NOTE | 2024-04-11 12:28 | RAD REPORT ---
EXAM DESCRIPTION: RAD - Chest Single View - 04/09/2024 12:04 am CLINICAL HISTORY: COUGH TECHNIQUE: Frontal view of the chest. COMPARISON: No relevant prior studies available. FINDINGS: Lungs: Unremarkable. No consolidation. Pleural space: Unremarkable. No pneumothorax. Heart: Unremarkable. No cardiomegaly. Mediastinum: Unremarkable. Normal mediastinal contour. Bones/joints: Unremarkable. No acute fracture. IMPRESSION: No acute disease. Electronically signed by: Danilo Aldana MD 04/09/2024 12:25 AM [facility] Due to temporary technical issues with the PACS/Fluency reporting system, reports are being signed by the in house radiologist without review as a courtesy to ensure prompt reporting. The interpreting r adiologist is fully responsible for the content of the report.
--- NOTE | 2024-04-11 12:33 | EKG ---
Test Date: 2024-04-09 Test Time: 04:48:32 E Marketing Specialist: MAGUI MEASUREMENT RESULTS: Intervals: Rate: 116 VT: 146 QRSD: 82 QT: 346 QTc: 480 [place]: P: 49 VT: 146 QRS: 35 T: 89 INTERPRETIVE STATEMENTS: Sinus tachycardia Nonspecific ST and T wave abnormality Abnormal ECG Compared to ECG 04/09/2024 00:05:57 Sinus rhythm no longer present ST (T wave) deviation still present Electronically Signed On 04-11-24 12:30:41 CDT by Kenneth Robins
--- NOTE | 2024-04-11 12:34 | EKG ---
Test Date: 2024-04-09 Test Time: 00:05:57 Physician/Ophthalmologist: AF MEASUREMENT RESULTS: Intervals: Rate: 93 [place]: 146 QRSD: 88 QT: 364 QTc: 452 [place]: P: 57 [place]: 146 QRS: 28 T: 56 INTERPRETIVE STATEMENTS: Normal sinus rhythm Nonspecific ST and T wave abnormality Abnormal ECG No previous ECG available for comparison Electronically Signed On 04-11-24 12:30:49 CDT by Kenneth Robins
[2024-04-11] MEDS: chlordiazePOXIDE HCl 25 MG CAP PO SCH (13:40)
[2024-04-11 16:07] VITALS: TEMP 98.5
[2024-04-11] MEDS: METOPROLOL TARTRATE 5 MG/5 ML INJ IV STA (16:17)
[2024-04-11] MEDS: METOPROLOL TAR 50 MG TAB PO ONE (16:18)
[2024-04-11] MEDS: LOSARTAN POTASSIUM 50 MG TABLET PO ONE (18:14)
[2024-04-11] MEDS ORDERED: METOPROLOL TARTRATE 5 MG/5 ML INJ IV STA (18:35)
[2024-04-11] MEDS ORDERED: cloNIDine HCL 0.1 MG TAB PO ONE (18:40)
[2024-04-11 19:52] VITALS: BP 148/97
== END 2024-04-11 20:20 | disposition home or self-care (01) | DRG 897 ==
LOC: ER 23:21 → ERHOLD 04-09 04:04 → 3RD-ICU 04-09 04:55
PROVIDERS: ADMIT Family Medicine; ATTEND Hospitalist
PROC: 30233R1 Transfusion of Nonautologous Platelets into Peripheral Vein, Percutaneous Approach (ICD-10-PCS; principal; 2024-04-09)
DX: F10.231 Alcohol dependence with withdrawal delirium (principal); I10 Essential (primary) hypertension; K70.9 Alcoholic liver disease, unspecified; D69.59 Other secondary thrombocytopenia; K02.9 Dental caries, unspecified; E83.42 Hypomagnesemia; F41.9 Anxiety disorder, unspecified; K74.60 Unspecified cirrhosis of liver; E66.9 Obesity, unspecified; R79.89 Other specified abnormal findings of blood chemistry; Z78.1 Physical restraint status; Z68.28 Body mass index [BMI] 28.0-28.9, adult; Y90.0 Blood alcohol level of less than 20 mg/100 ml
CPT/HCPCS: 36415; 70450; 71045; 76705; 80048; 80053; 80076; 81003; 82077; 82140; 82607; 83010; 83540; 83615; 83690; 83735; 83880; 84100; 84484; 85018; 85025; 85044; 85610; 85730; 86850; 86880; 86900; 86901; 93005; 96365; 96366; 96367; 96372; 96375; 99284; J1170; J2470; J3411; J3430; J3475; J3480; J7030; J7050; P9073